=== PATIENT | male | born 1935 | race Caucasian/White ===

== ENCOUNTER 2016-09-13 15:16 | Outpatient (CLI) | payer OTHER, MEDICARE ==
[~2016-09-13 15:16] MED LIST: COR6.25 PO; DULO60CA41 PO; DUTA0.5C PO; GLIP5TAB13 PO; LANS15CA5 PO; LISI2.5T48 PO; METF-510 PO; PREG200C PO; QUET200T5 PO; SPIR25TA4 PO; TAMS0.4C96 PO
== END 2016-09-13 18:53 | disposition home or self-care (01) ==
LOC: SRD 15:16
PROVIDERS: ATTEND Neuromusculoskeletal Medicine, Sports Medicine
DX: M19.011 Primary osteoarthritis, right shoulder (principal)
CPT/HCPCS: 73030

== ENCOUNTER 2016-11-15 18:44 | Emergency (ER) | payer OTHER, MEDICARE ==
[~2016-11-15] VITALS: Ht 175.3 cm; Wt 65.8 kg
[2016-11-15 18:45] VITALS: BP_SYST 125
[2016-11-15] MEDS ORDERED: LIDOCAINE 1% 10 MG/ML, 20 ML MDV INJ ONE (19:45)
[2016-11-15] MEDS ORDERED: ACETAMINOPHEN 500 MG TABLET PO ONE (19:45)
[2016-11-15] MEDS ORDERED: LIDOCAINE 1%, 20 ML MDV 20 ML ONE (20:01)
[2016-11-15] MEDS ORDERED: DIPH-TET Vacc 0.5 ML VIAL I.M. ONE ×2 (20:15→20:31)
[2016-11-15] MEDS ORDERED: BACITRACIN 1 GM OINT TP ONE (20:30)
[2016-11-15 20:36] VITALS: BP_SYST 122
== END 2016-11-15 20:36 | disposition home or self-care (01) ==
LOC: SED 18:44
DX: S01.01XA Laceration without foreign body of scalp, initial encounter (principal); E11.9 Type 2 diabetes mellitus without complications; I10 Essential (primary) hypertension; D64.9 Anemia, unspecified; N40.0 Benign prostatic hyperplasia without lower urinary tract symptoms; Z79.899 Other long term (current) drug therapy; W01.198A Fall on same level from slipping, tripping and stumbling with subsequent striking against other object, initial encounter; Y93.89 Activity, other specified; Y92.89 Other specified places as the place of occurrence of the external cause; Y99.8 Other external cause status
CPT/HCPCS: 12001; 70450; 90471; 90714; 99284; J2001

== ENCOUNTER 2016-11-27 14:47 | Emergency (ER) | payer OTHER, MEDICARE ==
--- NOTE | 2016-11-27 15:00 | NUR ---
Pt's name called. Not in waiting room or outside of ER.
--- NOTE | 2016-11-27 15:45 | NUR ---
Pt's name called. Not in ER waiting room or outside of ER.
== END 2016-11-27 15:49 | disposition left against medical advice (07) ==
LOC: SED 14:47
DX: Z48.02 Encounter for removal of sutures (principal); Z53.21 Procedure and treatment not carried out due to patient leaving prior to being seen by health care provider

== ENCOUNTER 2016-11-28 12:16 | Emergency (ER) | payer OTHER, MEDICARE ==
[~2016-11-28] VITALS: Ht 175.3 cm; Wt 78.0 kg
[2016-11-28 12:49] VITALS: BP_SYST 126
--- NOTE | 2016-11-28 12:55 | NUR ---
Pt AAOX4, able to verbalize needs. Pt states he is here for suture removal. Pt states no pain or distress at this time. Sutures on head, well approximated, no active bleeding noted. No other complaints or injuries per pt.
--- NOTE | 2016-11-28 12:55 | NUR ---
Patient to ER bed H1 to gown for evaluation. Side rails up. Report given to Aleja
[2016-11-28 13:35] VITALS: BP_SYST 126
--- NOTE | 2016-11-28 13:35 | NUR ---
Patient given written and verbal discharge instructions and verbalizes understanding. ER MD discussed with patient the results and treatment provided. Patient in stable condition. ID arm band removed. No Rx given. Patient educated on pain management and to follow up with PMD. Pain Scale 0/10. Opportunity for questions provided and answered.
== END 2016-11-28 13:35 | disposition home or self-care (01) ==
LOC: SED 12:16
DX: S01.01XD Laceration without foreign body of scalp, subsequent encounter (principal); E11.9 Type 2 diabetes mellitus without complications; I10 Essential (primary) hypertension; N40.0 Benign prostatic hyperplasia without lower urinary tract symptoms; D64.9 Anemia, unspecified; Z79.899 Other long term (current) drug therapy; W22.8XXD Striking against or struck by other objects, subsequent encounter; Y92.89 Other specified places as the place of occurrence of the external cause; Y99.8 Other external cause status
CPT/HCPCS: 99281

== ENCOUNTER 2023-05-16 17:44 | Inpatient (IN) | payer OTHER, MEDICARE ==
[~2023-05-16] VITALS: Ht 175.3 cm; Wt 67.6 kg
[~2023-05-16 17:44] MED LIST changes: -DULO60CA41 PO; +DULO60CA42 PO; +LANS15CA14 PO; -LANS15CA5 PO; -METF-510 PO; +METF-518 PO; -SPIR25TA4 PO; +SPIR25TA6 PO
[2023-05-16 17:51] VITALS: BP_SYST 130; PULSE 110; O2SAT 98
[2023-05-16 19:23] LABS: BASOPHILS % (AUTO) 0.4 % (0.0-2.0); EOSINOPHILS % (AUTO) 0.4 % (0.0-4.0); HEMATOCRIT 40.5 % (36-54); HEMOGLOBIN 13.6 g/dL (14.0-18.0); LYMPHOCYTES # (AUTO) 0.3 K/uL (1.0-5.5); LYMPHOCYTES % (AUTO) 3.8 % (20.5-51.5); MEAN CORPUSCULAR HEMOGLOBIN 31 pg (27-31); MEAN CORPUSCULAR HGB CONC 34 % (32-36); MEAN CORPUSCULAR VOLUME 91 fL (79.0-98.0); MONOCYTES # (AUTO) 0.5 K/uL (0.0-1.0); MONOCYTES % (AUTO) 6.8 % (1.7-9.3); NEUTROPHILS # (AUTO) 6.5 K/uL (1.8-7.7); NEUTROPHILS % (AUTO) 88.6 % (40.0-70.0); PLATELET COUNT (AUTO) 212 K/uL (130-430); RED BLOOD CELL COUNT(AUTO) 4.44 MIL/uL (4.2-6.2); RED CELL DISTRIBUTION WIDTH 14.6 % (9.0-15.0); WHITE BLOOD COUNT (AUTO) 7.3 K/uL (4.8-10.8)
[2023-05-16] MEDS ORDERED: ACETAMINOPHEN 500 MG TABLET PO ONE (19:30)
[2023-05-16 19:57] LABS: ANION GAP 8 (5-15); CALCIUM 8.8 mg/dL (8.4-11.0); CARBON DIOXIDE 24 mmol/L (23-29); CHLORIDE 102 mmol/L (98-107); CREATININE 2.06 mg/dL (0.55-1.30); PHOSPHORUS 2.2 mg/dL (2.7-4.5); POTASSIUM 4.3 mmol/L (3.5-5.1); SODIUM SERUM 134 mmol/L (136-145); UREA NITROGEN, BLOOD 35 mg/dL (8-21)
[2023-05-16 19:59] LABS: GLUCOSE 422 mg/dL (74-106)
[2023-05-16 20:55] LABS: BILIRUBIN,URINE NEGATIVE (NEGATIVE); BLOOD, URINE 2+ (NEGATIVE); COLOR,URINE YELLOW (YELLOW); GLUCOSE,URINE 3+ (NEGATIVE); KETONES,URINE NEGATIVE (NEGATIVE); LEUKOCYTE ESTERASE ,URINE NEGATIVE (NEGATIVE); NITRITE, URINE NEGATIVE (NEGATIVE); PH,URINE 5.5 (5.0-8.0); PROTEIN URINE NEGATIVE (NEGATIVE); UROBILINOGEN,URINE 0.2 (0.2-1.0)
[2023-05-16 20:58] LABS: CLARITY/URINE SLIGHTLY CLOUDY (CLEAR)
[2023-05-16 21:00] LABS: INFLUENZA TYPE A Negative (NEGATIVE); INFLUENZA TYPE B NEGATIVE (NEGATIVE)
[2023-05-16] MEDS ORDERED: NACL 0.9% 2,000 ML IV ONE (21:00)
[2023-05-16 21:11] LABS: COVID19 ANTIGEN SOFIA FIA POSITIVE (NEGATIVE)
[2023-05-16 21:41] LABS: BACTERIA,URINE FEW /HPF (None Seen); WBC,URINE 0-3 /HPF (0-3)
[2023-05-16] MEDS ORDERED: 0.45% NACL 1,000 ML IV ONE (21:45)
[2023-05-16] MEDS ORDERED: BREX1TAB PO (22:58)
[2023-05-16] MEDS ORDERED: EMPA10TA PO (22:58)
[2023-05-16] MEDS ORDERED: GLIM1TAB18 PO (22:58)
[2023-05-16] MEDS ORDERED: MEMA5TAB42 PO (22:58)
[2023-05-16] MEDS ORDERED: FINA-37 PO (23:03)
[2023-05-16] MEDS ORDERED: APIX2.5T PO (23:03)
[2023-05-16] MEDS ORDERED: RIVA1PAT11 TD (23:03)
[2023-05-16] MEDS ORDERED: CARV3.1246 PO (23:03)
[2023-05-16] MEDS ORDERED: MIRA50TA PO (23:03)
[2023-05-16] MEDS ORDERED: MELA5TAB12 PO (23:03)
[2023-05-16] MEDS ORDERED: TAMS-11 PO (23:03)
[2023-05-16] MEDS ORDERED: ROSU5TAB PO (23:03)
[2023-05-17] MEDS: INSULIN REGULAR, HUMAN 100 UNITS/ML, 3 ML VIAL (humuLIN R) SUBCUT PRN ×2 (02:08→21:20)
[2023-05-17] MEDS ORDERED: ENOXAPARIN SODIUM 30 MG/0.3 ML SYRINGE SUBCUT SCH (09:00)
[2023-05-17] MEDS: 0.45% NACL 1,000 ML IV SCH ×2 (10:45→21:21)
[2023-05-17] MEDS ORDERED: AZITHROMYCIN 500 MG in NS 250 ML IV ONE (12:00)
[2023-05-17] MEDS ORDERED: cefTRIAXone 1 GM in D5W 50 ML IV ONE (12:00)
[2023-05-17] MEDS: ACETAMINOPHEN 325 MG TABLET PO PRN (12:11)
[2023-05-17 17:05] VITALS: BP_SYST 123; PULSE 94; RESP 22; TEMP 97.7; O2SAT 92
[2023-05-17] MEDS: QUEtiapine FUMARATE 100 MG TABLET PO SCH (17:51)
[2023-05-17 20:00] VITALS: BP_SYST 144; PULSE 104; RESP 18; TEMP 97.8; O2SAT 94
[2023-05-17] MEDS ORDERED: NON-FORMULARY MEDICATION (Melatonin 1 TAB) PO SCH (21:00)
[2023-05-17] MEDS: CARVEDILOL 3.125 MG TABLET (COREG) PO SCH (21:18)
[2023-05-17] MEDS: APIXABAN 2.5 MG TABLET PO SCH (21:18)
[2023-05-17] MEDS: MELATONIN 5 MG TABLET PO SCH (21:19)
[2023-05-17] MEDS: MEMANTINE HCL 5 MG TABLET PO SCH (21:19)
[2023-05-17] MEDS: SPIRONOLACTONE 25 MG TABLET (ALDACTONE) PO SCH (21:19)
[2023-05-17] MEDS: ASCORBIC ACID 500 MG TABLET PO SCH (21:19)
[2023-05-18 00:51] VITALS: BP_SYST 127; PULSE 105; RESP 20; TEMP 99.5; O2SAT 94
[2023-05-18 05:03] LABS: BASOPHILS % (AUTO) 0.4 % (0.0-2.0); EOSINOPHILS # (AUTO) 0.1 K/uL (0.0-0.4); EOSINOPHILS % (AUTO) 0.5 % (0.0-4.0); HEMATOCRIT 35.9 % (36-54); LYMPHOCYTES # (AUTO) 0.5 K/uL (1.0-5.5); LYMPHOCYTES % (AUTO) 4.5 % (20.5-51.5); MEAN CORPUSCULAR HEMOGLOBIN 30 pg (27-31); MEAN CORPUSCULAR HGB CONC 33 % (32-36); MEAN CORPUSCULAR VOLUME 91 fL (79.0-98.0); MONOCYTES # (AUTO) 0.7 K/uL (0.0-1.0); MONOCYTES % (AUTO) 6.5 % (1.7-9.3); NEUTROPHILS # (AUTO) 9.8 K/uL (1.8-7.7); NEUTROPHILS % (AUTO) 88.1 % (40.0-70.0); PLATELET COUNT (AUTO) 223 K/uL (130-430); RED BLOOD CELL COUNT(AUTO) 3.93 MIL/uL (4.2-6.2); RED CELL DISTRIBUTION WIDTH 14.9 % (9.0-15.0); WHITE BLOOD COUNT (AUTO) 11.1 K/uL (4.8-10.8)
[2023-05-18 05:10] LABS: ANION GAP 17 (5-15); CALCIUM 7.7 mg/dL (8.4-11.0); CARBON DIOXIDE 16 mmol/L (23-29); CHLORIDE 108 mmol/L (98-107); CREATININE 1.82 mg/dL (0.55-1.30); GLUCOSE 159 mg/dL (74-106); SODIUM SERUM 141 mmol/L (136-145); UREA NITROGEN, BLOOD 33 mg/dL (8-21)
[2023-05-18] MEDS: 0.45% NACL 1,000 ML IV SCH ×2 (05:57→10:34)
[2023-05-18] MEDS: INSULIN REGULAR, HUMAN 100 UNITS/ML, 3 ML VIAL (humuLIN R) SUBCUT PRN ×2 (06:21→10:44)
[2023-05-18 08:00] VITALS: BP_SYST 123; PULSE 96; RESP 16; TEMP 96.7; O2SAT 96
[2023-05-18] MEDS ORDERED: NON-FORMULARY MEDICATION (Brexpiprazole (Rexulti) 1 TAB) PO SCH (09:00)
[2023-05-18] MEDS ORDERED: NON-FORMULARY MEDICATION (Lansoprazole (Prevacid) 15 MG) PO SCH (09:00)
[2023-05-18] MEDS: BREXPIPRAZOLE 1 MG PO SCH (09:00)
[2023-05-18] MEDS: RIVASTIGMINE 4.6 MG/24 HR PATCH.TD24 TD SCH (09:00)
[2023-05-18] MEDS ORDERED: RIVASTIGMINE 4.6 MG/24 HR PATCH.TD24 TD SCH (09:00)
[2023-05-18] MEDS ORDERED: ROSUVASTATIN CALCIUM 5 MG/TAB (CRESTOR) PO SCH (09:00)
[2023-05-18] MEDS ORDERED: NON-FORMULARY MEDICATION (Glimepiride 1 TAB) PO SCH (09:00)
[2023-05-18] MEDS: cefTRIAXone 1 GM in D5W 50 ML IV SCH (10:36)
[2023-05-18] MEDS: FINASTERIDE 5 MG TABLET (PROSCAR) PO SCH (10:36)
[2023-05-18] MEDS: SPIRONOLACTONE 25 MG TABLET (ALDACTONE) PO SCH ×2 (10:37→21:32)
[2023-05-18] MEDS: MEMANTINE HCL 5 MG TABLET PO SCH ×2 (10:37→21:32)
[2023-05-18] MEDS: TAMSULOSIN HCL 0.4 MG CAP PO SCH (10:37)
[2023-05-18] MEDS: ATORVASTATIN 20 MG TABLET PO SCH (10:38)
[2023-05-18] MEDS: GLIMEPIRIDE 2 MG TABLET PO SCH (10:38)
[2023-05-18] MEDS: PANTOPRAZOLE SODIUM 40 MG TAB PO SCH (10:38)
[2023-05-18] MEDS: lisinopriL 5 MG TABLET PO SCH (10:39)
[2023-05-18] MEDS: DULoxetine HCL 30 MG CAPSULE.DR (CYMBALTA) PO SCH (10:39)
[2023-05-18] MEDS: ASCORBIC ACID 500 MG TABLET PO SCH ×2 (10:39→21:32)
[2023-05-18] MEDS: CARVEDILOL 3.125 MG TABLET (COREG) PO SCH ×2 (10:40→21:32)
[2023-05-18] MEDS: EMPAGLIFLOZIN 10 MG TABLET PO SCH (10:40)
[2023-05-18] MEDS: DUTASTERIDE 0.5 MG CAPSULE (AVODART) PO SCH (10:41)
[2023-05-18] MEDS: MAGNESIUM OXIDE 400 MG TABLET PO SCH (10:42)
[2023-05-18] MEDS: APIXABAN 2.5 MG TABLET PO SCH ×2 (10:43→21:32)
[2023-05-18 11:22] VITALS: BP_SYST 105; PULSE 93; RESP 16; TEMP 97; O2SAT 93
[2023-05-18] MEDS: AZITHROMYCIN 500 MG in NS 250 ML IV SCH (11:53)
[2023-05-18 12:23] VITALS: O2SAT 96
[2023-05-18 15:07] VITALS: BP_SYST 108; PULSE 98; RESP 16; TEMP 97.4; O2SAT 93
[2023-05-18] MEDS: QUEtiapine FUMARATE 100 MG TABLET PO SCH (17:42)
[2023-05-18 20:00] VITALS: BP_SYST 106; PULSE 97; RESP 18; TEMP 97.8; O2SAT 93
[2023-05-18] MEDS: MELATONIN 5 MG TABLET PO SCH (21:33)
[2023-05-19] VITALS: BP_SYST 108; PULSE 94; RESP 18; TEMP 97.8; O2SAT 94
[2023-05-19] MEDS: 0.45% NACL 1,000 ML IV SCH ×2 (07:03→11:06)
[2023-05-19 08:09] VITALS: BP_SYST 99; PULSE 110; RESP 18; TEMP 96.7; O2SAT 95
[2023-05-19 08:30] VITALS: O2SAT 95
[2023-05-19] MEDS: CARVEDILOL 3.125 MG TABLET (COREG) PO SCH ×2 (09:00→20:55)
[2023-05-19] MEDS: RIVASTIGMINE 4.6 MG/24 HR PATCH.TD24 TD SCH (09:00)
[2023-05-19] MEDS: AZITHROMYCIN 500 MG in NS 250 ML IV SCH (09:00)
[2023-05-19] MEDS: BREXPIPRAZOLE 1 MG PO SCH (09:00)
[2023-05-19] MEDS: SPIRONOLACTONE 25 MG TABLET (ALDACTONE) PO SCH ×2 (09:00→20:54)
[2023-05-19] MEDS: lisinopriL 5 MG TABLET PO SCH (09:00)
[2023-05-19] MEDS: DUTASTERIDE 0.5 MG CAPSULE (AVODART) PO SCH (09:44)
[2023-05-19] MEDS: cefTRIAXone 1 GM in D5W 50 ML IV SCH (09:45)
[2023-05-19] MEDS: MAGNESIUM OXIDE 400 MG TABLET PO SCH (09:45)
[2023-05-19] MEDS: MEMANTINE HCL 5 MG TABLET PO SCH ×2 (09:45→20:56)
[2023-05-19] MEDS: ASCORBIC ACID 500 MG TABLET PO SCH ×2 (09:45→20:56)
[2023-05-19] MEDS: DULoxetine HCL 30 MG CAPSULE.DR (CYMBALTA) PO SCH (09:45)
[2023-05-19] MEDS: TAMSULOSIN HCL 0.4 MG CAP PO SCH (09:45)
[2023-05-19] MEDS: PANTOPRAZOLE SODIUM 40 MG TAB PO SCH (09:46)
[2023-05-19] MEDS: FINASTERIDE 5 MG TABLET (PROSCAR) PO SCH (09:46)
[2023-05-19] MEDS: APIXABAN 2.5 MG TABLET PO SCH ×2 (09:47→20:55)
[2023-05-19] MEDS: ATORVASTATIN 20 MG TABLET PO SCH (09:51)
[2023-05-19] MEDS: GLIMEPIRIDE 2 MG TABLET PO SCH (09:54)
[2023-05-19] MEDS: EMPAGLIFLOZIN 10 MG TABLET PO SCH (09:54)
[2023-05-19 11:10] VITALS: BP_SYST 97; PULSE 107; RESP 16; TEMP 97; O2SAT 94
[2023-05-19 15:05] VITALS: BP_SYST 116; PULSE 108; RESP 16; TEMP 96.9; O2SAT 97
[2023-05-19] MEDS: KCL 20 mEq in D5NS 1000 mL 1,000 ML IV SCH (16:01)
[2023-05-19] MEDS: traMADol HCL HCL 50 MG TABLET (ULTRAM) PO SCH ×2 (17:32→23:36)
[2023-05-19] MEDS: QUEtiapine FUMARATE 100 MG TABLET PO SCH (17:32)
[2023-05-19 20:00] VITALS: BP_SYST 97; PULSE 72; RESP 12; TEMP 96.7; O2SAT 92
[2023-05-19] MEDS: MEGESTROL ACETATE 400 MG/10 ML UDC PO SCH (20:55)
[2023-05-19] MEDS: MELATONIN 5 MG TABLET PO SCH (20:56)
[2023-05-20] VITALS (7 sets, daily range): BP systolic 94–120; PULSE 75–124; RESP 16–20; TEMP 96.2–97.8; O2SAT 92–97
[2023-05-20] MEDS: KCL 20 mEq in D5NS 1000 mL 1,000 ML IV SCH ×2 (04:20→10:01)
[2023-05-20] MEDS: traMADol HCL HCL 50 MG TABLET (ULTRAM) PO SCH ×3 (05:42→17:17)
[2023-05-20 08:01] LABS: BASOPHILS % (AUTO) 0.2 % (0.0-2.0); EOSINOPHILS # (AUTO) 0.3 K/uL (0.0-0.4); HEMATOCRIT 34.7 % (36-54); HEMOGLOBIN 11.5 g/dL (14.0-18.0); LYMPHOCYTES # (AUTO) 0.5 K/uL (1.0-5.5); MEAN CORPUSCULAR HEMOGLOBIN 30 pg (27-31); MEAN CORPUSCULAR HGB CONC 33 % (32-36); MEAN CORPUSCULAR VOLUME 91 fL (79.0-98.0); MONOCYTES # (AUTO) 0.6 K/uL (0.0-1.0); MONOCYTES % (AUTO) 6.6 % (1.7-9.3); NEUTROPHILS % (AUTO) 85.2 % (40.0-70.0); PLATELET COUNT (AUTO) 221 K/uL (130-430); RED BLOOD CELL COUNT(AUTO) 3.82 MIL/uL (4.2-6.2); RED CELL DISTRIBUTION WIDTH 14.9 % (9.0-15.0); WHITE BLOOD COUNT (AUTO) 9.4 K/uL (4.8-10.8)
[2023-05-20 08:05] LABS: ANION GAP 11 (5-15); CALCIUM 8.1 mg/dL (8.4-11.0); CARBON DIOXIDE 20 mmol/L (23-29); CHLORIDE 110 mmol/L (98-107); CREATININE 1.86 mg/dL (0.55-1.30); GLUCOSE 116 mg/dL (74-106); POTASSIUM 4.2 mmol/L (3.5-5.1); SODIUM SERUM 141 mmol/L (136-145); UREA NITROGEN, BLOOD 43 mg/dL (8-21)
[2023-05-20] MEDS: lisinopriL 5 MG TABLET PO SCH (09:00)
[2023-05-20] MEDS: CARVEDILOL 3.125 MG TABLET (COREG) PO SCH ×2 (09:00→22:15)
[2023-05-20] MEDS: BREXPIPRAZOLE 1 MG PO SCH (09:00)
[2023-05-20] MEDS: cefTRIAXone 1 GM in D5W 50 ML IV SCH (10:02)
[2023-05-20] MEDS: AZITHROMYCIN 500 MG in NS 250 ML IV SCH (10:03)
[2023-05-20] MEDS: RIVASTIGMINE 4.6 MG/24 HR PATCH.TD24 TD SCH (10:03)
[2023-05-20] MEDS: EMPAGLIFLOZIN 10 MG TABLET PO SCH (10:04)
[2023-05-20] MEDS: DUTASTERIDE 0.5 MG CAPSULE (AVODART) PO SCH (10:05)
[2023-05-20] MEDS: SPIRONOLACTONE 25 MG TABLET (ALDACTONE) PO SCH ×2 (10:05→22:15)
[2023-05-20] MEDS: TAMSULOSIN HCL 0.4 MG CAP PO SCH (10:05)
[2023-05-20] MEDS: DULoxetine HCL 30 MG CAPSULE.DR (CYMBALTA) PO SCH (10:06)
[2023-05-20] MEDS: ASCORBIC ACID 500 MG TABLET PO SCH ×2 (10:06→22:14)
[2023-05-20] MEDS: ATORVASTATIN 20 MG TABLET PO SCH (10:06)
[2023-05-20] MEDS: FINASTERIDE 5 MG TABLET (PROSCAR) PO SCH (10:06)
[2023-05-20] MEDS: GLIMEPIRIDE 2 MG TABLET PO SCH (10:06)
[2023-05-20] MEDS: MEGESTROL ACETATE 400 MG/10 ML UDC PO SCH ×2 (10:07→22:12)
[2023-05-20] MEDS: PANTOPRAZOLE SODIUM 40 MG TAB PO SCH (10:07)
[2023-05-20] MEDS: MEMANTINE HCL 5 MG TABLET PO SCH ×2 (10:07→22:14)
[2023-05-20] MEDS: APIXABAN 2.5 MG TABLET PO SCH ×2 (10:10→22:14)
[2023-05-20] MEDS: MAGNESIUM OXIDE 400 MG TABLET PO SCH (11:48)
[2023-05-20] MEDS: QUEtiapine FUMARATE 100 MG TABLET PO SCH (22:14)
[2023-05-20] MEDS: MELATONIN 5 MG TABLET PO SCH (22:16)
[2023-05-20] MEDS: INSULIN REGULAR, HUMAN 100 UNITS/ML, 3 ML VIAL (humuLIN R) SUBCUT PRN (22:29)
[2023-05-21] MEDS: traMADol HCL HCL 50 MG TABLET (ULTRAM) PO SCH ×4 (01:17→17:22)
[2023-05-21] MEDS: KCL 20 mEq in D5NS 1000 mL 1,000 ML IV SCH ×2 (01:22→17:37)
[2023-05-21 01:45] VITALS: BP_SYST 122; PULSE 110; RESP 17; TEMP 97.6; O2SAT 95
[2023-05-21 08:51] VITALS: BP_SYST 108; PULSE 114; RESP 18; TEMP 97.2; O2SAT 97
[2023-05-21] MEDS: lisinopriL 5 MG TABLET PO SCH (09:00)
[2023-05-21] MEDS: BREXPIPRAZOLE 1 MG PO SCH (09:00)
[2023-05-21] MEDS: CARVEDILOL 3.125 MG TABLET (COREG) PO SCH ×2 (09:00→20:44)
[2023-05-21] MEDS: EMPAGLIFLOZIN 10 MG TABLET PO SCH (09:09)
[2023-05-21] MEDS: RIVASTIGMINE 4.6 MG/24 HR PATCH.TD24 TD SCH (09:10)
[2023-05-21] MEDS: MEGESTROL ACETATE 400 MG/10 ML UDC PO SCH ×2 (09:10→20:43)
[2023-05-21] MEDS: DUTASTERIDE 0.5 MG CAPSULE (AVODART) PO SCH (09:10)
[2023-05-21] MEDS: DULoxetine HCL 30 MG CAPSULE.DR (CYMBALTA) PO SCH (09:11)
[2023-05-21] MEDS: ATORVASTATIN 20 MG TABLET PO SCH (09:11)
[2023-05-21] MEDS: GLIMEPIRIDE 2 MG TABLET PO SCH (09:12)
[2023-05-21] MEDS: PANTOPRAZOLE SODIUM 40 MG TAB PO SCH (09:12)
[2023-05-21] MEDS: TAMSULOSIN HCL 0.4 MG CAP PO SCH (09:12)
[2023-05-21] MEDS: FINASTERIDE 5 MG TABLET (PROSCAR) PO SCH (09:12)
[2023-05-21] MEDS: ASCORBIC ACID 500 MG TABLET PO SCH ×2 (09:13→20:44)
[2023-05-21] MEDS: SPIRONOLACTONE 25 MG TABLET (ALDACTONE) PO SCH ×2 (09:13→20:44)
[2023-05-21] MEDS: QUEtiapine FUMARATE 100 MG TABLET PO SCH ×2 (09:14→20:45)
[2023-05-21] MEDS: MEMANTINE HCL 5 MG TABLET PO SCH ×2 (09:14→20:45)
[2023-05-21] MEDS: APIXABAN 2.5 MG TABLET PO SCH ×2 (09:15→20:46)
[2023-05-21] MEDS: cefTRIAXone 1 GM in D5W 50 ML IV SCH (09:19)
[2023-05-21] MEDS: AZITHROMYCIN 500 MG in NS 250 ML IV SCH (09:24)
[2023-05-21] MEDS: MAGNESIUM OXIDE 400 MG TABLET PO SCH (09:25)
[2023-05-21 14:45] VITALS: O2SAT 97
[2023-05-21 15:45] VITALS: BP_SYST 100; PULSE 130; RESP 15; TEMP 97.2; O2SAT 96
[2023-05-21 20:00] VITALS: BP_SYST 154; PULSE 104; RESP 22; TEMP 97.6; O2SAT 95
[2023-05-21] MEDS: MELATONIN 5 MG TABLET PO SCH (20:43)
[2023-05-22] MEDS: traMADol HCL HCL 50 MG TABLET (ULTRAM) PO SCH ×5 (00:40→23:01)
[2023-05-22 01:47] VITALS: BP_SYST 128; PULSE 109; RESP 19; TEMP 96.7; O2SAT 93
[2023-05-22 08:00] VITALS: BP_SYST 104; PULSE 115; RESP 18; TEMP 97.4; O2SAT 94; O2SAT 96
[2023-05-22] MEDS: lisinopriL 5 MG TABLET PO SCH (09:00)
[2023-05-22] MEDS: BREXPIPRAZOLE 1 MG PO SCH (09:00)
[2023-05-22] MEDS: MAGNESIUM OXIDE 400 MG TABLET PO SCH (09:00)
[2023-05-22] MEDS: MEGESTROL ACETATE 400 MG/10 ML UDC PO SCH ×2 (10:51→22:16)
[2023-05-22] MEDS: ASCORBIC ACID 500 MG TABLET PO SCH ×2 (10:51→22:17)
[2023-05-22] MEDS: DULoxetine HCL 30 MG CAPSULE.DR (CYMBALTA) PO SCH (10:51)
[2023-05-22] MEDS: MEMANTINE HCL 5 MG TABLET PO SCH ×2 (10:52→22:17)
[2023-05-22] MEDS: cefTRIAXone 1 GM in D5W 50 ML IV SCH (10:52)
[2023-05-22] MEDS: CARVEDILOL 3.125 MG TABLET (COREG) PO SCH ×2 (10:53→22:26)
[2023-05-22] MEDS: FINASTERIDE 5 MG TABLET (PROSCAR) PO SCH (10:53)
[2023-05-22] MEDS: PANTOPRAZOLE SODIUM 40 MG TAB PO SCH (10:53)
[2023-05-22] MEDS: TAMSULOSIN HCL 0.4 MG CAP PO SCH (10:53)
[2023-05-22] MEDS: ATORVASTATIN 20 MG TABLET PO SCH (11:00)
[2023-05-22] MEDS: GLIMEPIRIDE 2 MG TABLET PO SCH (11:01)
[2023-05-22] MEDS: QUEtiapine FUMARATE 100 MG TABLET PO SCH ×2 (11:01→22:16)
[2023-05-22] MEDS: SPIRONOLACTONE 25 MG TABLET (ALDACTONE) PO SCH ×2 (11:06→22:26)
[2023-05-22] MEDS: DUTASTERIDE 0.5 MG CAPSULE (AVODART) PO SCH (11:09)
[2023-05-22] MEDS: EMPAGLIFLOZIN 10 MG TABLET PO SCH (11:11)
[2023-05-22] MEDS: APIXABAN 2.5 MG TABLET PO SCH ×2 (11:14→22:34)
[2023-05-22] MEDS: RIVASTIGMINE 4.6 MG/24 HR PATCH.TD24 TD SCH (11:16)
[2023-05-22 11:41] VITALS: BP_SYST 102; PULSE 130; RESP 22; TEMP 98.8; O2SAT 91
[2023-05-22] MEDS: AZITHROMYCIN 500 MG in NS 250 ML IV SCH (12:13)
[2023-05-22] MEDS: KCL 20 mEq in D5NS 1000 mL 1,000 ML IV SCH (12:14)
[2023-05-22 17:15] VITALS: BP_SYST 106; PULSE 122; RESP 21; TEMP 98.4; O2SAT 93
[2023-05-22 20:00] VITALS: BP_SYST 132; PULSE 102; RESP 22; TEMP 96.6; O2SAT 94
[2023-05-22] MEDS: MELATONIN 5 MG TABLET PO SCH (21:00)
[2023-05-23] VITALS: BP_SYST 111; PULSE 102; RESP 20; TEMP 96.9; O2SAT 93
[2023-05-23] MEDS: KCL 20 mEq in D5NS 1000 mL 1,000 ML IV SCH ×3 (03:13→20:54)
[2023-05-23] MEDS: traMADol HCL HCL 50 MG TABLET (ULTRAM) PO SCH ×3 (05:55→17:30)
[2023-05-23 08:00] VITALS: BP_SYST 110; PULSE 116; RESP 20; TEMP 98.6; O2SAT 94
[2023-05-23] MEDS: MAGNESIUM OXIDE 400 MG TABLET PO SCH (08:59)
[2023-05-23] MEDS: DUTASTERIDE 0.5 MG CAPSULE (AVODART) PO SCH (08:59)
[2023-05-23] MEDS: MEGESTROL ACETATE 400 MG/10 ML UDC PO SCH ×2 (08:59→20:51)
[2023-05-23] MEDS: EMPAGLIFLOZIN 10 MG TABLET PO SCH (08:59)
[2023-05-23] MEDS: RIVASTIGMINE 4.6 MG/24 HR PATCH.TD24 TD SCH (08:59)
[2023-05-23] MEDS: DULoxetine HCL 30 MG CAPSULE.DR (CYMBALTA) PO SCH (09:00)
[2023-05-23] MEDS: GLIMEPIRIDE 2 MG TABLET PO SCH (09:00)
[2023-05-23] MEDS: BREXPIPRAZOLE 1 MG PO SCH (09:00)
[2023-05-23] MEDS: SPIRONOLACTONE 25 MG TABLET (ALDACTONE) PO SCH ×2 (09:02→21:00)
[2023-05-23] MEDS: MEMANTINE HCL 5 MG TABLET PO SCH ×2 (09:02→20:51)
[2023-05-23] MEDS: PANTOPRAZOLE SODIUM 40 MG TAB PO SCH (09:02)
[2023-05-23] MEDS: ASCORBIC ACID 500 MG TABLET PO SCH ×2 (09:03→20:51)
[2023-05-23] MEDS: ATORVASTATIN 20 MG TABLET PO SCH (09:03)
[2023-05-23] MEDS: FINASTERIDE 5 MG TABLET (PROSCAR) PO SCH (09:03)
[2023-05-23] MEDS: TAMSULOSIN HCL 0.4 MG CAP PO SCH (09:03)
[2023-05-23] MEDS: CARVEDILOL 3.125 MG TABLET (COREG) PO SCH ×2 (09:04→21:00)
[2023-05-23] MEDS: lisinopriL 5 MG TABLET PO SCH (09:04)
[2023-05-23] MEDS: APIXABAN 2.5 MG TABLET PO SCH ×2 (09:05→20:51)
[2023-05-23] MEDS: cefTRIAXone 1 GM in D5W 50 ML IV SCH (09:11)
[2023-05-23 10:00] VITALS: O2SAT 95
[2023-05-23 11:04] VITALS: BP_SYST 112; PULSE 111; RESP 20; TEMP 97.2; O2SAT 94
[2023-05-23] MEDS: INSULIN REGULAR, HUMAN 100 UNITS/ML, 3 ML VIAL (humuLIN R) SUBCUT PRN ×3 (11:51→20:50)
[2023-05-23 17:15] VITALS: BP_SYST 112; PULSE 110; RESP 20; TEMP 97.2; O2SAT 94
[2023-05-23 20:00] VITALS: BP_SYST 98; PULSE 122; RESP 22; TEMP 97.6; O2SAT 94
[2023-05-23] MEDS: QUEtiapine FUMARATE 100 MG TABLET PO SCH (20:51)
[2023-05-23] MEDS: MELATONIN 5 MG TABLET PO SCH (20:51)
[2023-05-24 01:10] VITALS: BP_SYST 111; PULSE 96; RESP 17; TEMP 98.4; O2SAT 100
[2023-05-24 04:56] LABS: BASOPHILS % (AUTO) 0.2 % (0.0-2.0); EOSINOPHILS # (AUTO) 0.2 K/uL (0.0-0.4); HEMOGLOBIN 10.2 g/dL (14.0-18.0); LYMPHOCYTES # (AUTO) 0.4 K/uL (1.0-5.5); LYMPHOCYTES % (AUTO) 4.2 % (20.5-51.5); MEAN CORPUSCULAR HEMOGLOBIN 31 pg (27-31); MEAN CORPUSCULAR HGB CONC 34 % (32-36); MEAN CORPUSCULAR VOLUME 91 fL (79.0-98.0); MONOCYTES # (AUTO) 0.6 K/uL (0.0-1.0); MONOCYTES % (AUTO) 6.4 % (1.7-9.3); NEUTROPHILS # (AUTO) 8.7 K/uL (1.8-7.7); NEUTROPHILS % (AUTO) 87.2 % (40.0-70.0); PLATELET COUNT (AUTO) 303 K/uL (130-430); RED CELL DISTRIBUTION WIDTH 15.6 % (9.0-15.0)
[2023-05-24 05:05] LABS: ANION GAP 11 (5-15); CALCIUM 8.6 mg/dL (8.4-11.0); CARBON DIOXIDE 17 mmol/L (23-29); CHLORIDE 115 mmol/L (98-107); CREATININE 1.76 mg/dL (0.55-1.30); GLUCOSE 136 mg/dL (74-106); POTASSIUM 4.6 mmol/L (3.5-5.1); SODIUM SERUM 143 mmol/L (136-145); UREA NITROGEN, BLOOD 31 mg/dL (8-21)
[2023-05-24] MEDS: traMADol HCL HCL 50 MG TABLET (ULTRAM) PO SCH ×4 (05:06→18:00)
[2023-05-24 08:00] VITALS: BP_SYST 107; PULSE 106; RESP 18; TEMP 97; O2SAT 96
[2023-05-24] MEDS: BREXPIPRAZOLE 1 MG PO SCH (09:00)
[2023-05-24] MEDS: GLIMEPIRIDE 2 MG TABLET PO SCH (09:34)
[2023-05-24] MEDS: cefTRIAXone 1 GM in D5W 50 ML IV SCH (10:14)
[2023-05-24 11:01] VITALS: BP_SYST 117; PULSE 109; RESP 18; TEMP 97.3; O2SAT 95
[2023-05-24] MEDS: MEMANTINE HCL 5 MG TABLET PO SCH ×2 (11:11→21:02)
[2023-05-24] MEDS: TAMSULOSIN HCL 0.4 MG CAP PO SCH (11:11)
[2023-05-24] MEDS: MEGESTROL ACETATE 400 MG/10 ML UDC PO SCH ×2 (11:11→21:00)
[2023-05-24] MEDS: PANTOPRAZOLE SODIUM 40 MG TAB PO SCH (11:11)
[2023-05-24] MEDS: ASCORBIC ACID 500 MG TABLET PO SCH ×2 (11:11→21:00)
[2023-05-24] MEDS: SPIRONOLACTONE 25 MG TABLET (ALDACTONE) PO SCH ×2 (11:12→21:02)
[2023-05-24] MEDS: ATORVASTATIN 20 MG TABLET PO SCH (11:13)
[2023-05-24] MEDS: lisinopriL 5 MG TABLET PO SCH (11:13)
[2023-05-24] MEDS: FINASTERIDE 5 MG TABLET (PROSCAR) PO SCH (11:13)
[2023-05-24] MEDS: MAGNESIUM OXIDE 400 MG TABLET PO SCH (11:14)
[2023-05-24] MEDS: DULoxetine HCL 30 MG CAPSULE.DR (CYMBALTA) PO SCH (11:14)
[2023-05-24] MEDS: CARVEDILOL 3.125 MG TABLET (COREG) PO SCH ×2 (11:14→21:02)
[2023-05-24] MEDS: APIXABAN 2.5 MG TABLET PO SCH ×2 (11:17→21:00)
[2023-05-24] MEDS: EMPAGLIFLOZIN 10 MG TABLET PO SCH (11:20)
[2023-05-24] MEDS: RIVASTIGMINE 4.6 MG/24 HR PATCH.TD24 TD SCH (11:20)
[2023-05-24] MEDS: DUTASTERIDE 0.5 MG CAPSULE (AVODART) PO SCH (11:21)
[2023-05-24] MEDS: KCL 20 mEq in D5NS 1000 mL 1,000 ML IV SCH (14:53)
[2023-05-24 15:49] VITALS: BP_SYST 96; PULSE 111; RESP 14; TEMP 97.6; O2SAT 95
[2023-05-24] MEDS: INSULIN REGULAR, HUMAN 100 UNITS/ML, 3 ML VIAL (humuLIN R) SUBCUT PRN ×2 (17:38→20:58)
[2023-05-24 20:30] VITALS: BP_SYST 135; PULSE 104; RESP 16; TEMP 98.2; O2SAT 94
[2023-05-24] MEDS: QUEtiapine FUMARATE 100 MG TABLET PO SCH (21:00)
[2023-05-24] MEDS: MELATONIN 5 MG TABLET PO SCH (21:01)
[2023-05-24 22:00] VITALS: O2SAT 95
[2023-05-25 01:36] VITALS: BP_SYST 121; PULSE 87; RESP 17; TEMP 97.6; O2SAT 91
[2023-05-25] MEDS: KCL 20 mEq in D5NS 1000 mL 1,000 ML IV SCH (06:29)
[2023-05-25] MEDS: traMADol HCL HCL 50 MG TABLET (ULTRAM) PO SCH ×4 (06:29→18:28)
[2023-05-25] MEDS: INSULIN REGULAR, HUMAN 100 UNITS/ML, 3 ML VIAL (humuLIN R) SUBCUT PRN ×2 (06:31→12:28)
[2023-05-25 08:00] VITALS: BP_SYST 163; PULSE 130; RESP 24; TEMP 98.1; O2SAT 93
[2023-05-25] MEDS: GLIMEPIRIDE 2 MG TABLET PO SCH (08:36)
[2023-05-25] MEDS: MEMANTINE HCL 5 MG TABLET PO SCH ×2 (08:37→21:20)
[2023-05-25] MEDS: DULoxetine HCL 30 MG CAPSULE.DR (CYMBALTA) PO SCH (08:37)
[2023-05-25] MEDS: PANTOPRAZOLE SODIUM 40 MG TAB PO SCH (08:37)
[2023-05-25] MEDS: MAGNESIUM OXIDE 400 MG TABLET PO SCH (08:37)
[2023-05-25] MEDS: TAMSULOSIN HCL 0.4 MG CAP PO SCH (08:38)
[2023-05-25] MEDS: FINASTERIDE 5 MG TABLET (PROSCAR) PO SCH (08:38)
[2023-05-25] MEDS: SPIRONOLACTONE 25 MG TABLET (ALDACTONE) PO SCH ×2 (08:38→21:15)
[2023-05-25] MEDS: CARVEDILOL 3.125 MG TABLET (COREG) PO SCH ×2 (08:39→21:15)
[2023-05-25] MEDS: DUTASTERIDE 0.5 MG CAPSULE (AVODART) PO SCH (08:39)
[2023-05-25] MEDS: RIVASTIGMINE 4.6 MG/24 HR PATCH.TD24 TD SCH (08:39)
[2023-05-25] MEDS: MEGESTROL ACETATE 400 MG/10 ML UDC PO SCH ×2 (08:39→21:14)
[2023-05-25] MEDS: ASCORBIC ACID 500 MG TABLET PO SCH ×2 (08:39→21:15)
[2023-05-25] MEDS: ATORVASTATIN 20 MG TABLET PO SCH (08:39)
[2023-05-25] MEDS: APIXABAN 2.5 MG TABLET PO SCH ×2 (08:41→21:16)
[2023-05-25] MEDS: EMPAGLIFLOZIN 10 MG TABLET PO SCH (08:41)
[2023-05-25] MEDS: lisinopriL 5 MG TABLET PO SCH (08:44)
[2023-05-25] MEDS: BREXPIPRAZOLE 1 MG PO SCH (09:00)
[2023-05-25 12:00] VITALS: BP_SYST 169; PULSE 108; RESP 18; TEMP 98.2; O2SAT 96
[2023-05-25 16:00] VITALS: BP_SYST 148; PULSE 106; RESP 22; TEMP 99; O2SAT 96
[2023-05-25 20:00] VITALS: BP_SYST 123; PULSE 108; RESP 20; TEMP 99.2; O2SAT 95
[2023-05-25] MEDS: QUEtiapine FUMARATE 100 MG TABLET PO SCH (21:14)
[2023-05-25] MEDS: MELATONIN 5 MG TABLET PO SCH (21:17)
[2023-05-26 00:03] VITALS: O2SAT 95
[2023-05-26] MEDS: traMADol HCL HCL 50 MG TABLET (ULTRAM) PO SCH ×2 (00:19→06:11)
[2023-05-26 01:40] VITALS: BP_SYST 117; PULSE 78; RESP 19; TEMP 97; O2SAT 98
[2023-05-26 02:14] VITALS: BP_SYST 123; PULSE 108; RESP 20; TEMP 99.2; O2SAT 95
[2023-05-26] MEDS: KCL 20 mEq in D5NS 1000 mL 1,000 ML IV SCH (02:40)
[2023-05-26 08:36] VITALS: BP_SYST 104; PULSE 96; RESP 16; TEMP 98; O2SAT 93
[2023-05-26] MEDS: BREXPIPRAZOLE 1 MG PO SCH (09:00)
[2023-05-26] MEDS: RIVASTIGMINE 4.6 MG/24 HR PATCH.TD24 TD SCH (09:00)
[2023-05-26 09:24] VITALS: BP_SYST 104; PULSE 96; RESP 18; TEMP 98; O2SAT 93
[2023-05-26] MEDS: DUTASTERIDE 0.5 MG CAPSULE (AVODART) PO SCH (10:11)
[2023-05-26] MEDS: APIXABAN 2.5 MG TABLET PO SCH (10:13)
[2023-05-26] MEDS: lisinopriL 5 MG TABLET PO SCH (10:17)
[2023-05-26] MEDS: MEGESTROL ACETATE 400 MG/10 ML UDC PO SCH (10:17)
[2023-05-26] MEDS: ATORVASTATIN 20 MG TABLET PO SCH (10:17)
[2023-05-26] MEDS: ASCORBIC ACID 500 MG TABLET PO SCH (10:17)
[2023-05-26] MEDS: FINASTERIDE 5 MG TABLET (PROSCAR) PO SCH (10:18)
[2023-05-26] MEDS: TAMSULOSIN HCL 0.4 MG CAP PO SCH (10:18)
[2023-05-26] MEDS: SPIRONOLACTONE 25 MG TABLET (ALDACTONE) PO SCH (10:18)
[2023-05-26] MEDS: GLIMEPIRIDE 2 MG TABLET PO SCH (10:18)
[2023-05-26] MEDS: CARVEDILOL 3.125 MG TABLET (COREG) PO SCH (10:19)
[2023-05-26] MEDS: PANTOPRAZOLE SODIUM 40 MG TAB PO SCH (10:22)
[2023-05-26] MEDS: MEMANTINE HCL 5 MG TABLET PO SCH (10:25)
[2023-05-26] MEDS: EMPAGLIFLOZIN 10 MG TABLET PO SCH (10:25)
[2023-05-26] MEDS: DULoxetine HCL 30 MG CAPSULE.DR (CYMBALTA) PO SCH (10:25)
[2023-05-26] MEDS: MAGNESIUM OXIDE 400 MG TABLET PO SCH (10:26)
[2023-05-26] MEDS: ACETAMINOPHEN 325 MG TABLET PO PRN (10:37)
== END 2023-05-26 10:42 | DRG 177 ==
LOC: SED 17:44 → SMU 21:44
PROVIDERS: ADMIT Family Medicine; ATTEND Family Medicine
DX: U07.1 COVID-19 (principal); G93.41 Metabolic encephalopathy; N17.9 Acute kidney failure, unspecified; I10 Essential (primary) hypertension; N40.0 Benign prostatic hyperplasia without lower urinary tract symptoms; D64.9 Anemia, unspecified; E86.0 Dehydration; E11.65 Type 2 diabetes mellitus with hyperglycemia; F03.A0 Unspecified dementia, mild, without behavioral disturbance, psychotic disturbance, mood disturbance, and anxiety
CPT/HCPCS: 36415; 70450-TC; 71045; 73502; 76376; 80048; 81000; 81001; 81015; 82948; 82962; 83605; 83735; 83880; 84100; 84484; 85025; 87040; 93005; 97110-GP; 97116-GP; 97163-GP; 97530-GP; 99285; J0456; J0696; J1650; J1815; J7050; J7060